=== PATIENT | female | born 1950 | race Caucasian/White ===

== ENCOUNTER → 2023-03-26 10:45 | Outpatient (REF) | payer MEDICARE, SELFPAY | LOC: HWRAD 10:45 | PROVIDERS: ATTENDING PHYSICIAN Nurse Practitioner Family; FAMILY PHYSICIAN Family Medicine; REFERRING PHYSICIAN Oral & Maxillofacial Surgery | DX: R22.9 Localized swelling, mass and lump, unspecified (principal); Z78.0 Asymptomatic menopausal state | CPT/HCPCS: 76536; 77080 ==

== ENCOUNTER → 2023-06-17 08:55 | Outpatient (REF) | payer MEDICARE, SELFPAY ==
[2023-06-17 12:27] LABS: % Basophils 1.3 % (0-2); % Lymphocytes 51.8 % (20.5-51.1); % Monocytes 7.3 % (1.7-9.3); % Neutrophils 37.6 % (42.2-75.2); Absolute Basophils 0.1 10^3/uL (0-0.2); Absolute Eosinophils 0.1 10^3/uL (0-0.7); Absolute Lymphocytes 2.1 10^3/uL (1.2-3.4); Absolute Monocytes 0.3 10^3/uL (0.1-0.6); Absolute Neutrophils 1.5 10^3/uL (1.4-6.5); Hematocrit 37.2 % (37.0-47.0); Hemoglobin 12.4 g/dL (12.0-16.0); Mean Corp Hgb Conc. 33.3 g/dL (33.0-37.0); Mean Corpuscular Volume 96.1 fL (81.0-99.0); Mean Platelet Volume 10.7 fL (7.4-10.4); Nucleated Red Blood Cells % 0 %; Platelet Count 203 10^3/uL (130-400); Red Blood Cell Count 3.87 10^6/uL (4.20-5.40); Red Cell Dist. Width 12.1 % (11.5-14.5)
[2023-06-17 12:35] LABS: ALT (SGPT) 12 U/L (0-35); AST (SGOT) 24 U/L (14-36); Albumin 3.9 g/dl (3.5-5.0); Alkaline Phosphatase 52 U/L (38-126); Blood Urea Nitrogen 14 mg/dl (7-17); Calcium 9.4 mg/dl (8.4-10.2); Carbon Dioxide 28 mmol/L (22-30); Chloride 103 mmol/L (98-107); Glucose 84 mg/dl (70-99); Potassium 4.1 mmol/L (3.5-5.1); Sodium 137 mmol/L (135-145); Total Bilirubin 0.7 mg/dl (0.2-1.3); eGFR > 60.00
[2023-06-17 12:42] LABS: C-Reactive Protein < 5.00 mg/L (0.0-10.00)
[2023-06-17 12:57] LABS: Vitamin D, 25-OH*** 52.5 ng/mL (30-80)
[2023-06-17 13:23] LABS: Erythrocyte Sed Rate 13 mm/hour (0-20)
[2023-06-17 13:47] LABS: Folate 7.3 ng/ml (2.76-20); Vitamin B12 538 pg/ml (239-931)
[2023-06-17 15:13] LABS: Lyme Antibody Screen, EIA Negative (Negative); Rheumatoid Agglutinin Less Than 10 IU (<10 IU)
[2023-06-20 08:40] LABS: CCP Antibody IgG/IgA 12 Units (0-19)
== END ==
LOC: HWLAB 08:55
PROVIDERS: ATTENDING PHYSICIAN Internal Medicine Rheumatology; FAMILY PHYSICIAN Family Medicine
DX: M79.671 Pain in right foot (principal); M79.641 Pain in right hand; A69.20 Lyme disease, unspecified; E55.9 Vitamin D deficiency, unspecified; M05.9 Rheumatoid arthritis with rheumatoid factor, unspecified; M81.0 Age-related osteoporosis without current pathological fracture; R53.83 Other fatigue; Z51.81 Encounter for therapeutic drug level monitoring; E53.8 Deficiency of other specified B group vitamins
CPT/HCPCS: 36415; 73130; 73630; 80053; 82306; 82607; 82746; 85025; 85652; 86140; 86200; 86430; 86618

== ENCOUNTER → 2023-11-16 16:57 | Outpatient (REF) | payer MEDICARE, SELFPAY | LOC: HWRAD 16:57 | PROVIDERS: ATTENDING PHYSICIAN Family Medicine | DX: R05.9 Cough, unspecified (principal) | CPT/HCPCS: 71046 ==

== ENCOUNTER → 2024-01-19 09:20 | Outpatient (REF) | payer MEDICARE, SELFPAY ==
[2024-01-19 12:21] LABS: % Basophils 1.1 % (0-2); % Eosinophils 1.8 % (0-6); % Immature Granulocytes 0.2 % (0-0.5); % Lymphocytes 41.7 % (20.5-51.1); % Monocytes 8.8 % (1.7-9.3); % Neutrophils 46.4 % (42.2-75.2); Absolute Basophils 0.1 10^3/uL (0-0.2); Absolute Eosinophils 0.1 10^3/uL (0-0.7); Absolute Lymphocytes 1.9 10^3/uL (1.2-3.4); Absolute Monocytes 0.4 10^3/uL (0.1-0.6); Absolute Neutrophils 2.1 10^3/uL (1.4-6.5); Hematocrit 39.6 % (37.0-47.0); Mean Corp Hgb Conc. 32.8 g/dL (33.0-37.0); Mean Corpuscular Hgb 32.3 pg (27.0-31.0); Mean Corpuscular Volume 98.3 fL (81.0-99.0); Mean Platelet Volume 10.2 fL (7.4-10.4); Nucleated Red Blood Cells % 0 %; Platelet Count 213 10^3/uL (130-400); Red Blood Cell Count 4.03 10^6/uL (4.20-5.40); White Blood Cell Count 4.5 10^3/uL (4.8-10.8)
[2024-01-19 12:25] LABS: ALT (SGPT) 16 U/L (0-35); AST (SGOT) 29 U/L (14-36); Albumin 4.2 g/dl (3.5-5.0); Alkaline Phosphatase 47 U/L (38-126); Blood Urea Nitrogen 13 mg/dl (7-17); Calcium 9.1 mg/dl (8.4-10.2); Carbon Dioxide 29 mmol/L (22-30); Chloride 104 mmol/L (98-107); Glucose 86 mg/dl (70-99); HDL Cholesterol 105 mg/dl; LDL Cholesterol, Calculated 78 mg/dl; Potassium 4.4 mmol/L (3.5-5.1); Sodium 141 mmol/L (135-145); Total Bilirubin 0.6 mg/dl (0.2-1.3); Total Cholesterol 198 mg/dl (50-199); Total Protein 6.3 g/dl (6.3-8.2); Triglyceride 75 mg/dl (10-149); Very Low Density Lipoprotein 15 mg/dl (0-30); eGFR > 60.00
== END ==
LOC: HWWDC 09:20
PROVIDERS: ATTENDING PHYSICIAN Nurse Practitioner Family; FAMILY PHYSICIAN Family Medicine; REFERRING PHYSICIAN Internal Medicine Rheumatology
DX: Z12.31 Encounter for screening mammogram for malignant neoplasm of breast (principal); M25.50 Pain in unspecified joint; M79.641 Pain in right hand; M81.0 Age-related osteoporosis without current pathological fracture; Z51.81 Encounter for therapeutic drug level monitoring; I10 Essential (primary) hypertension
CPT/HCPCS: 36415; 77063; 77067; 80053; 80061; 85025

== ENCOUNTER → 2024-07-25 11:10 | Outpatient (REF) | payer MEDICARE, SELFPAY ==
[2024-07-25 15:55] LABS: % Basophils 1.2 % (0-2); % Eosinophils 3.4 % (0-6); % Immature Granulocytes 0.2 % (0-0.5); % Lymphocytes 48.6 % (20.5-51.1); % Monocytes 7.6 % (1.7-9.3); Absolute Basophils 0.1 10^3/uL (0-0.2); Absolute Eosinophils 0.1 10^3/uL (0-0.7); Absolute Monocytes 0.3 10^3/uL (0.1-0.6); Absolute Neutrophils 1.6 10^3/uL (1.4-6.5); Hematocrit 36.4 % (37.0-47.0); Hemoglobin 12.2 g/dL (12.0-16.0); Mean Corp Hgb Conc. 33.5 g/dL (33.0-37.0); Mean Corpuscular Hgb 32.3 pg (27.0-31.0); Mean Corpuscular Volume 96.3 fL (81.0-99.0); Mean Platelet Volume 10.8 fL (7.4-10.4); Nucleated Red Blood Cells % 0 %; Platelet Count 185 10^3/uL (130-400); Red Blood Cell Count 3.78 10^6/uL (4.20-5.40); Red Cell Dist. Width 13.2 % (11.5-14.5); White Blood Cell Count 4.1 10^3/uL (4.8-10.8)
[2024-07-25 16:02] LABS: Erythrocyte Sed Rate 7 mm/hour (0-20)
[2024-07-25 16:08] LABS: C-Reactive Protein < 5.00 mg/L (0.0-10.00)
[2024-07-25 16:12] LABS: ALT (SGPT) 17 U/L (0-35); AST (SGOT) 26 U/L (14-36); Albumin 4.2 g/dl (3.5-5.0); Alkaline Phosphatase 40 U/L (38-126); Blood Urea Nitrogen 14 mg/dl (7-17); Calcium 8.8 mg/dl (8.4-10.2); Carbon Dioxide 27 mmol/L (22-30); Chloride 109 mmol/L (98-107); Glucose 86 mg/dl (70-99); Potassium 4.3 mmol/L (3.5-5.1); Sodium 139 mmol/L (135-145); Total Bilirubin 0.7 mg/dl (0.2-1.3); eGFR > 60.00
== END ==
LOC: HWLAB 11:10
PROVIDERS: ATTENDING PHYSICIAN Internal Medicine Rheumatology; FAMILY PHYSICIAN Family Medicine
DX: M25.50 Pain in unspecified joint (principal); M54.2 Cervicalgia; M81.0 Age-related osteoporosis without current pathological fracture; Z51.81 Encounter for therapeutic drug level monitoring
CPT/HCPCS: 36415; 72050; 80053; 85025; 85652; 86140

== ENCOUNTER → 2024-10-02 11:07 | Outpatient (REF) | payer MEDICARE, SELFPAY ==
[2024-10-02 15:23] LABS: ALT (SGPT) 22 U/L (0-35); AST (SGOT) 28 U/L (14-36); Albumin 4.6 g/dl (3.5-5.0); Alkaline Phosphatase 48 U/L (38-126); Blood Urea Nitrogen 18 mg/dl (7-17); Calcium 10.3 mg/dl (8.4-10.2); Carbon Dioxide 28 mmol/L (22-30); Chloride 103 mmol/L (98-107); Glucose 91 mg/dl (70-99); Potassium 4.3 mmol/L (3.5-5.1); Sodium 138 mmol/L (135-145); Total Protein 6.9 g/dl (6.3-8.2); eGFR > 60.00
== END ==
LOC: HWLAB 11:07
PROVIDERS: ATTENDING PHYSICIAN Internal Medicine Rheumatology; FAMILY PHYSICIAN Family Medicine
DX: M81.0 Age-related osteoporosis without current pathological fracture (principal)
CPT/HCPCS: 36415; 80053

== ENCOUNTER → 2025-02-14 11:42 | Outpatient (REF) | payer MEDICARE, SELFPAY ==
[2025-02-14 15:33] LABS: ALT (SGPT) 17 U/L (0-35); AST (SGOT) 27 U/L (14-36); Albumin 4.2 g/dl (3.5-5.0); Alkaline Phosphatase 54 U/L (38-126); Blood Urea Nitrogen 15 mg/dl (7-17); Calcium 9.0 mg/dl (8.4-10.2); Carbon Dioxide 28 mmol/L (22-30); Chloride 103 mmol/L (98-107); Glucose 89 mg/dl (70-99); Potassium 4.1 mmol/L (3.5-5.1); Sodium 134 mmol/L (135-145); Total Protein 6.5 g/dl (6.3-8.2); eGFR > 60.00
== END ==
LOC: HWLAB 11:42
PROVIDERS: ATTENDING PHYSICIAN Internal Medicine Rheumatology; FAMILY PHYSICIAN Family Medicine
DX: G89.29 Other chronic pain (principal); M81.0 Age-related osteoporosis without current pathological fracture; Z51.81 Encounter for therapeutic drug level monitoring
CPT/HCPCS: 36415; 80053